=== PATIENT | male | born 1940 | race Caucasian/White ===

== ENCOUNTER 2024-08-24 07:55 | Outpatient (CLI) | payer MEDICARE, MEDICAID ==
[~2024-08-24 07:55] MED LIST: ASPI-611 PO; CHLO25TA2 PO; LISI-644 PO; METO100T7 PO; OMEP20CA15 PO; SIMV-343 PO
== END 2024-08-24 23:59 | disposition home or self-care (01) ==
LOC: RAD 07:55
PROVIDERS: ATTEND Internal Medicine
DX: Z11.1 Encounter for screening for respiratory tuberculosis (principal); R91.8 Other nonspecific abnormal finding of lung field; J98.11 Atelectasis; J18.9 Pneumonia, unspecified organism; I71.21 Aneurysm of the ascending aorta, without rupture; I25.10 Atherosclerotic heart disease of native coronary artery without angina pectoris; N28.1 Cyst of kidney, acquired
CPT/HCPCS: 71250

== ENCOUNTER 2024-08-27 06:22 | Emergency (ER) | payer MEDICARE, MEDICAID ==
[~2024-08-27] VITALS: Ht 172.7 cm; Wt 62.3 kg
[2024-08-27 06:26] VITALS: BP 122/65; PULSE 84; RESP 16; TEMP 98.2; O2SAT 96
== END 2024-08-27 08:20 | disposition left against medical advice (07) ==
LOC: ER 06:23
DX: R51.9 Headache, unspecified (principal); Z53.21 Procedure and treatment not carried out due to patient leaving prior to being seen by health care provider

== ENCOUNTER 2024-12-05 14:27 | Outpatient (CLI) | payer MEDICARE, MEDICAID | END 2024-12-05 23:59 | disposition home or self-care (01) | LOC: RAD 14:27 | PROVIDERS: ATTEND Internal Medicine | DX: S09.90XA Unspecified injury of head, initial encounter (principal); Z11.1 Encounter for screening for respiratory tuberculosis; J84.10 Pulmonary fibrosis, unspecified; X58.XXXA Exposure to other specified factors, initial encounter; Y93.89 Activity, other specified; Y92.89 Other specified places as the place of occurrence of the external cause; Y99.8 Other external cause status; Q92 Other trisomies and partial trisomies of the autosomes, not elsewhere classified; J98.4 Other disorders of lung; Z90.09 Acquired absence of other part of head and neck; I51.7 Cardiomegaly; I25.10 Atherosclerotic heart disease of native coronary artery without angina pectoris; Z98.890 Other specified postprocedural states | CPT/HCPCS: 70486; 71250 ==